=== PATIENT | male | born 1965 | race Caucasian/White ===

== ENCOUNTER → 2018-08-20 | Outpatient (CLI) | payer OTHER ==
[~2018-08-20] MED LIST: IBUP-1022 PO
--- NOTE | 2018-08-22 00:01 | ECGEPIP ---
[facility] Test Date: 2018-08-20 Pat Name: ABBY MASTERSON Department: Room: - Gender: Male [employer] Regional Consultant: RF : [id number] Requested By: Jamaal Carroll Order Number: [id number] Reading MD: Price Barcenas Measurements Intervals [place] Rate: 75 P: 57 MA: 162 QRS: 60 QRSD: 92 T: 54 QT: 364 QTc: 407 Interpretive Statements SINUS RHYTHM No prior tracing in the system Electronically Signed on 08-22-2018 0:00:33 EDT by Price Barcenas
== END ==
LOC: M EKG 10:27
PROVIDERS: ATTEND Internal Medicine
DX: Z01.818 Encounter for other preprocedural examination (principal)

== ENCOUNTER 2018-08-26 08:29 | Day surgery (SDC) | payer OTHER ==
[~2018-08-26] VITALS: Ht 172.7 cm; Wt 103.4 kg
[~2018-08-26 08:29] MED LIST changes: +EPINEPHrine INJ 1 MG/ML 1ML AMP As Ordered ONE; +LIDOCAINE 1% MDV 20ML VIAL As Ordered ONE; +LIDOCAINE 2% INJ 100 MG/5 ML SDV (FOR ANES.) As Ordered ONE; +LR 1,000 ML IV ONE; +MIDAZOLAM INJ 2 MG/2 ML VIAL (J2250) As Ordered ONE; +ONDANSETRON 4MG/2ML VIAL (J2405) As Ordered ONE; +PROPOFOL 200 MG/20 ML VIAL As Ordered ONE; +ROCURONIUM BROMIDE 50 MG/5 ML VIAL As Ordered ONE; +dexameTHASONE 4 MG/ML 1ML VIAL (J1100) As Ordered ONE; +fentaNYL 100 MCG/2 ML INJECTION (J3010) As Ordered ONE
[2018-08-26] MEDS ORDERED: EPINEPHrine INJ 1 MG/ML 1ML AMP ONE (08:30)
[2018-08-26] MEDS ORDERED: dexameTHASONE 10 MG/1 ML VIAL PRES.FREE (J1100) ONE (08:30)
[2018-08-26] MEDS ORDERED: ROPIvacaine 0.5% 30 ML INJECTION (J2795 PER 1MG) ONE (08:30)
[2018-08-26] MEDS ORDERED: MIDAZOLAM INJ 2 MG/2 ML VIAL (J2250) As Ordered ONE (09:46)
[2018-08-26] MEDS ORDERED: fentaNYL 100 MCG/2 ML INJECTION (J3010) As Ordered ONE ×3 (09:46→12:59)
[2018-08-26] MEDS ORDERED: EPINEPHrine INJ 1 MG/ML 1ML AMP As Ordered ONE (09:55)
[2018-08-26] MEDS ORDERED: ceFAZolin 2 GM/D5W 50 ML IV BAG (J0690 PER 500MG) As Ordered ONE (10:21)
[2018-08-26] MEDS ORDERED: fentaNYL 100 MCG/2 ML INJECTION (J3010) IV ONE (10:30)
[2018-08-26] MEDS ORDERED: MIDAZOLAM INJ 2 MG/2 ML VIAL (J2250) IV ONE (10:30)
[2018-08-26] MEDS ORDERED: NEOSTIGMINE 10 MG/10 ML VIAL (J2710) As Ordered ONE (10:57)
[2018-08-26] MEDS ORDERED: GLYCOPYRROLATE INJ 0.2 MG/ML 2 ML VIAL As Ordered ONE (10:57)
[2018-08-26] MEDS ORDERED: BUPIVACAINE HCL 0.25% 30 ML VIAL As Ordered ONE (11:11)
[2018-08-26] MEDS ORDERED: ONDANSETRON 4MG/2ML VIAL (J2405) As Ordered ONE (13:54)
[2018-08-26] MEDS ORDERED: METOCLOPRAMIDE INJ 10MG/2ML VIAL (J2765) As Ordered ONE (14:12)
[2018-08-26] MEDS ORDERED: LR 1,000 ML IV SCH (14:15)
[2018-08-26] MEDS ORDERED: ONDANSETRON 4MG/2ML VIAL (J2405) IV PRN (14:15)
[2018-08-26] MEDS: fentaNYL 100 MCG/2 ML INJECTION (J3010) IV PRN ×4 (14:17→14:38)
[2018-08-26] MEDS ORDERED: METOCLOPRAMIDE INJ 10MG/2ML VIAL (J2765) IV PRN (14:30)
[2018-08-26] MEDS: oxyCODONE 5MG TAB PO PRN ×2 (14:32→16:11)
[2018-08-26] MEDS ORDERED: KETOROLAC 30 MG/ML VIAL (J1885) As Ordered ONE (14:46)
--- NOTE | 2018-08-26 14:46 | RO ---
DATE OF PROCEDURE: 08/26/2018 PREOPERATIVE DIAGNOSES: 1. Right shoulder partial thickness rotator cuff tear. 2. Right shoulder SLAP tear. 3. Right shoulder acromioclavicular joint arthritis. 4. Right shoulder impingement. POSTOPERATIVE DIAGNOSES: 1. Right shoulder high-grade partial thickness rotator cuff tear. 2. Right shoulder type IV SLAP tear. 3. Right shoulder acromioclavicular joint arthritis. 4. Right shoulder impingement. PROCEDURE: 1. Right shoulder arthroscopic rotator cuff repair, including subscapularis. 2. Right shoulder open subpectoral biceps tenodesis. 3. Right shoulder arthroscopic distal clavicle excision. 4. Right shoulder subacromial decompression, including acromioplasty. SURGEON: Dr. Ash Marin [employer] TRUCK DRIVER: AMITA Purdy ANESTHESIA: General: Preoperative nerve block. IV FLUIDS: Lactated Ringer's. ESTIMATED BLOOD LOSS: 5 mL. IMPLANTS: Arthrex proximal biceps button times one. Arthrex 4.75 mm Peak SwiveLock anchor times five. CLOSURE: Monocryl and nylon. DESCRIPTION OF PROCEDURE: The patient was identified in preoperative holding area. The right shoulder was marked by myself. He had interscalene nerve block by anesthesia. He was brought the operating room and placed supine on a well-padded operating room table. General anesthesia was induced. He received appropriate IV antibiotics within 1 hour of incision. An exam under anesthesia revealed 170 degrees of forward flexion and 70 degrees of external rotation of the arm at his side. No increased anterior-posterior translation. The right arm was then placed into the Arthrex star sleeve lateral decubitus traction mendoza. He was placed into the left side down lateral decubitus position with an axillary roll and all bony prominences well padded. Bilateral Venodyne boots for deep vein thrombosis (DVT) prophylaxis. The right arm was position with 10 pounds of traction. He was secured to the operating room table. The right shoulder was then prepped and draped in normal sterile fashion with Chloraprep. Prior to incision, time-out was performed per hospital protocol. Pino Cooper was present for the entire procedure and participated in all essential portions of the procedure. This included patient positioning and draping, holding the arthroscope, performing the biceps tenotomy, assisting with whip stitching of the biceps tendon, retrieving sutures, placing SwiveLock anchors and wound closure. The right shoulder was insufflated was lactated Ringer's. A standard posterior viewing portal made with an 11-blade. 30 degrees arthroscope introduced into the joint atraumatically. Diagnostic arthroscopy carried out revealing minimal chondromalacia of the glenohumeral joint. There was degenerative fraying of the anterior labrum. No displaced labral tear. There was extensive tearing of the superior labrum extending into the long head of biceps tendon, appeared to be a type IV SLAP tear. There was partial tearing of the upper border of the subscapularis. There was some partial articular sided tearing of the anterior supraspinatus. There was some fraying of the infraspinatus. An anterior working portal was established in the rotator interval and on probing the superior labrum, the anchor was highly unstable. A tenotomy was performed using the meniscal punch. The tendon was released right off the superior labrum and the shaver was used to remove degenerative torn superior and anterior labral tissue. A rotator interval release was performed with the radiofrequency cautery and a debridement of the upper border of the subscapularis tendon. This did appeared to partially lift off doing the posterior lever push maneuver. I then proceeded with an open biceps tenodesis. 15 blade used to make an incision just lateral to the axilla and dissection down to the biceps fascia. That was opened carefully with Metzenbaum scissors. The long head of the biceps tendon was easily identified and dissected out the right angle clamp. The tendon was retrieved uneventfully and then the proximal biceps kit opened. A running locking whip stitch was placed with the fiber loop. Excess tendon trimmed and sent to pathology. Sutures loaded through the biceps button per protocol. Drill hole was made with the spade tip drill bit within the bicipital groove just proximal to lower edge of the pectoral major tendon. Irrigation used to remove bony debris. Sutures were passed through the button per routine and the button was passed through the drill hole on its hot head machine operator. The sutures were toggled, which flipped the button and docked the tendon nicely along the bicipital groove. Curve free needle was used to pass one limb of suture back through the tendon and locked the construct in place. Knots were tied by hand. This nicely restored the resting tension. Incision was then extensively irrigated, closed in layered fashion with 2-0 Vicryl and a running Monocryl and Steri-Strips at the end of the case. I also injected 10 mL of 0.25 percent Marcaine without epinephrine as the preoperative nerve block seemed to miss that area. Arthroscope was then placed into the subacromial space and a very high-grade bursal sided rotator cuff tear was encountered. At this point, I determined he needed a rotator cuff repair and therefore also elected to proceed with the subscapularis repair. Arthroscope placed back into the joint and accessory superolateral portal was created and the shaver was used to remove soft tissue from the lesser tuberosity deep to the subscapularis. Scorpion was used to pass fiber tape through the upper border of the subscapularis and then that was loaded through a 4.75 mm Peak SwiveLock anchor. Punch was used to create a socket in the lesser tuberosity. The anchor was docked, malleted and then inserted by hand with excellent fixation. This nicely compressed the subscapularis against the lesser tuberosity. Arthroscope placed back into the subacromial space. A lateral working portal was established a bursectomy performed with shaver and cautery. A moderate subacromial spur was encountered and a formal acromioplasty performed with the bur. Attention was then turned to the AC joint before the patient became too swollen. Cautery was used to clear soft tissue out from the AC joint. There was bone on bone contact. I was unable to pass instruments from anterior to posterior. A bur was then used to remove approximately 5-6 mm of the distal clavicle and 1 mm from the acromion. The arthroscope was intermittently placed into the anterior portal to get a direct view and ensure that no superior and posterior bone remained. Once a satisfactory distal clavicle excision was performed, attention was turned to the supraspinatus tear. This was almost a full-thickness tear. A few articular sided fibers remaining. The tear was completed with cautery and a ring curette used to clear soft tissue off the tuberosity. Spinal needle used to localize the medial row. I percutaneously placed two 4.75 mm Peak SwiveLock anchors preloaded with tape, one anterior and one further posterior just off the articular surface. The both had great fixation. The tape sutures were then passed individually in a horizontal mattress fashion so four passes of tape. An impending dog ear posteriorly was anticipated so a separate strand a fiber tape was passed of the scorpion through the very far posterior portion of the tear. One suture from each medial anchor was then brought to the anterolateral anchor and the cannula used to determine the appropriate position for that lateral row. The awl was used to create a socket in the greater tuberosity. The anchor was docked, sutures tensioned and then malleted and advanced by hand with excellent fixation. Excess suture cut with arthroscopic lacing string cutter. These steps were repeated for the remaining sutures into a posterior lateral anchor. Same steps repeated. This restored the box and X configuration. The entire supraspinatus was nicely compressed on the greater tuberosity without being under any significant tension. There were no dog ears. The shoulder was gently internally and externally rotated. There was no lift off or buckling. Shoulder was irrigated and drained. Portals closed with nylon suture. Steri-Strips placed over the biceps incision. Bulky sterile dressing was applied and then he was placed into the Arc 2.0 sling. He was extubated, transferred to postanesthesia care unit (PACU) in stable condition. COMPLICATIONS: None.
[2018-08-26] MEDS ORDERED: ACETAMINOPHEN *IV* 1,000 MG IV PRN ×2 (15:00)
[2018-08-26] MEDS ORDERED: KETOROLAC 30 MG/ML VIAL (J1885) IV PRN (15:00)
[2018-08-26] MEDS ORDERED: oxyCODONE 5MG TAB As Ordered ONE (16:11)
[2018-08-26 18:00] VITALS: BP 162/93
== END 2018-08-26 18:05 | disposition home or self-care (01) ==
LOC: M SDC 08:29
PROVIDERS: ATTEND Orthopaedic Surgery
DX: M75.111 Incomplete rotator cuff tear or rupture of right shoulder, not specified as traumatic (principal); S43.431A Superior glenoid labrum lesion of right shoulder, initial encounter; M19.011 Primary osteoarthritis, right shoulder; M75.41 Impingement syndrome of right shoulder; F17.210 Nicotine dependence, cigarettes, uncomplicated; Y93.9 Activity, unspecified; Y92.9 Unspecified place or not applicable
CPT/HCPCS: 23430; 29824; 29826; 29827; 64415; 88304; C1713; J0131; J0690; J1100; J1885; J2250; J2405; J2710; J2765; J2795; J3010

== ENCOUNTER → 2022-07-19 | Outpatient (CLI) | payer OTHER ==
[~2022-07-19] MED LIST changes: +CELE1CAP9 PO; -EPINEPHrine INJ 1 MG/ML 1ML AMP As Ordered ONE; +ERGO500029; -LIDOCAINE 1% MDV 20ML VIAL As Ordered ONE; -LIDOCAINE 2% INJ 100 MG/5 ML SDV (FOR ANES.) As Ordered ONE; -LR 1,000 ML IV ONE; -MIDAZOLAM INJ 2 MG/2 ML VIAL (J2250) As Ordered ONE; -ONDANSETRON 4MG/2ML VIAL (J2405) As Ordered ONE; -PROPOFOL 200 MG/20 ML VIAL As Ordered ONE; -ROCURONIUM BROMIDE 50 MG/5 ML VIAL As Ordered ONE; +SIMV10TA21 PO; -dexameTHASONE 4 MG/ML 1ML VIAL (J1100) As Ordered ONE; -fentaNYL 100 MCG/2 ML INJECTION (J3010) As Ordered ONE
== END ==
LOC: M RAD 06:37
PROVIDERS: ATTEND Internal Medicine Medical Oncology
DX: D45 Polycythemia vera (principal)

== ENCOUNTER 2022-11-28 10:22 | Emergency (ER) | payer BC, OTHER ==
[~2022-11-28] VITALS: Ht 172.7 cm; Wt 107.8 kg
[~2022-11-28 10:22] MED LIST changes: +CELE0.09 PO; -CELE1CAP9 PO; +OMEG10002 PO
[2022-11-28 10:59] LABS: BASO # 0.1 10^3/uL (0.0-0.2); BASO % 0.7 % (0.0-1.0); EOS # 0.4 10^3/uL (0.0-0.5); HEMATOCRIT 45.9 % (42.0-52.0); HEMOGLOBIN 15.6 g/dl (13.5-17.5); LYMPH # 3.2 10^3/uL (1.5-5.0); LYMPH % 25.1 % (24.0-44.0); MEAN CORPUSCULAR HEMOGLOBIN 32.2 pg (27.0-33.0); MEAN CORPUSCULAR VOLUME 94.6 fl (80.0-96.0); MONO # 0.9 10^3/uL (0.0-0.8); NEUTROPHILS % 63.6 % (36.0-66.0); PLATELET COUNT, AUTOMATED 260 10^3/uL (150-450); RED BLOOD COUNT 4.85 10^6/uL (4.30-6.10); WHITE BLOOD COUNT 12.5 10^3/uL (4.0-10.0)
[2022-11-28 11:19] LABS: INR 0.98; PROTHROMBIN TIME 12.7 SECONDS (12.5-14.5)
[2022-11-28 11:20] LABS: CK-MB VALUE MASS < 1.0 NG/ML (<3.6); LIPASE 40 U/L (12-53)
[2022-11-28 11:23] LABS: ALBUMIN 3.6 G/DL (3.2-5.2); ALKALINE PHOSPHATASE 85 U/L (46-116); ALT/SGPT 29 U/L (7.0-40); AST/SGOT 14 U/L (<34); BILIRUBIN,DIRECT 0.1 MG/DL (<0.4); BILIRUBIN,TOTAL 0.5 MG/DL (0.3-1.2); BLOOD UREA NITROGEN 14 MG/DL (9-23); CALCIUM LEVEL 9.3 MG/DL (8.5-10.1); CARBON DIOXIDE LEVEL 28 MMOL/L (20-31); CHLORIDE LEVEL 110 MMOL/L (98-107); CPK CREATINE PHOSPHOKINASE 59 U/L (46-171); CREATININE FOR GFR 0.72 MG/DL (0.70-1.30); GLOMERULAR FILTRATION RATE > 60.0 (>56); GLUCOSE, FASTING 98 MG/DL (60-100); MB/CK RELATIVE INDEX 1.69 (< OR =4); POTASSIUM SERUM 4.2 MMOL/L (3.5-5.1); SODIUM LEVEL 141 MMOL/L (136-145); TOTAL PROTEIN 6.4 G/DL (5.7-8.2)
[2022-11-28] MEDS ORDERED: ACETAMINOPHEN 500 MG TAB PO ONE (11:35)
[2022-11-28] MEDS ORDERED: ISOVUE-370 76% 100ML VIAL As Ordered ONE (12:53)
[2022-11-28] MEDS ORDERED: [UNRECOGNIZED DRUG - REMARK] (14:39)
[2022-11-28 14:48] VITALS: BP 128/69; TEMP 96.8; O2SAT 98
== END 2022-11-28 14:51 | disposition home or self-care (01) ==
LOC: EDBD 10:22 → M ED 11:27
DX: R07.9 Chest pain, unspecified (principal); X50.0XXA Overexertion from strenuous movement or load, initial encounter; E78.5 Hyperlipidemia, unspecified; F17.200 Nicotine dependence, unspecified, uncomplicated; R93.2 Abnormal findings on diagnostic imaging of liver and biliary tract; Z79.899 Other long term (current) drug therapy
CPT/HCPCS: 71045; 71275; 80048; 80076; 82550; 82553; 83690; 84484; 85025; 85610; 93005; 93041; 94760; 99285; Q9967

== ENCOUNTER → 2022-12-25 | Outpatient (CLI) | payer OTHER ==
[~2022-12-25] MED LIST changes: +[UNRECOGNIZED DRUG - REMARK]
== END ==
LOC: M RAD 07:39
PROVIDERS: ATTEND Nurse Practitioner
DX: K76.0 Fatty (change of) liver, not elsewhere classified (principal); Q44.6 Cystic disease of liver

== ENCOUNTER → 2023-05-13 | Outpatient (CLI) | payer OTHER | LOC: M PLAIMG 14:10 | PROVIDERS: ATTEND Internal Medicine Cardiovascular Disease | DX: R94.31 Abnormal electrocardiogram [ECG] [EKG] (principal) ==

== ENCOUNTER → 2023-06-13 | Outpatient (CLI) | payer OTHER ==
[~2023-06-13] MED LIST changes: +LIDOCAINE 1% MDV 20ML VIAL As Ordered ONE
[2023-06-13 11:30] VITALS: TEMP 98
[2023-06-13 11:36] LABS: BASO # 0.1 10^3/uL (0.0-0.2); BASO % 1.2 % (0.0-1.0); EOS # 0.3 10^3/uL (0.0-0.5); EOS % 2.2 % (0.0-3.0); HEMATOCRIT 44.8 % (42.0-52.0); HEMOGLOBIN 14.6 g/dl (13.5-17.5); LYMPH # 3.3 10^3/uL (1.5-5.0); LYMPH % 29.2 % (24.0-44.0); MEAN CORPUSCULAR HGB CONC 32.6 g/dl (32.0-36.5); MEAN CORPUSCULAR VOLUME 89.1 fl (80.0-96.0); MONO # 0.9 10^3/uL (0.0-0.8); MONO % 7.5 % (2.0-8.0); NEUTROPHILS # 6.7 10^3/uL (1.5-8.5); NEUTROPHILS % 59.2 % (36.0-66.0); PLATELET COUNT, AUTOMATED 261 10^3/uL (150-450); RED BLOOD COUNT 5.03 10^6/uL (4.30-6.10); WHITE BLOOD COUNT 11.3 10^3/uL (4.0-10.0)
[2023-06-13 11:53] LABS: INR 0.95; PROTHROMBIN TIME 12.4 SECONDS (12.5-14.5)
[2023-06-13 12:35] VITALS: BP 161/84; O2SAT 98
== END ==
LOC: M IRPRO 11:02
PROVIDERS: ATTEND Internal Medicine Medical Oncology
DX: D45 Polycythemia vera (principal)

== ENCOUNTER → 2023-06-28 | Outpatient (CLI) | payer OTHER ==
[~2023-06-28] MED LIST changes: -ERGO500029; +ERGO500029 PO; -LIDOCAINE 1% MDV 20ML VIAL As Ordered ONE
== END ==
LOC: M RAD 15:27
PROVIDERS: ATTEND Physician Assistant Medical
DX: Z12.2 Encounter for screening for malignant neoplasm of respiratory organs (principal); Z87.891 Personal history of nicotine dependence; J47.9 Bronchiectasis, uncomplicated; K76.89 Other specified diseases of liver

== ENCOUNTER → 2023-07-16 | Outpatient (CLI) | payer OTHER ==
[~2023-07-16] MED LIST changes: +GASTROGRAFIN SOLUTION 30ML As Ordered ONE; +ISOVUE-370 76% 100ML VIAL As Ordered ONE
== END ==
LOC: M RAD 14:40
PROVIDERS: ATTEND Internal Medicine Medical Oncology
DX: D75.1 Secondary polycythemia (principal); K76.0 Fatty (change of) liver, not elsewhere classified; K76.89 Other specified diseases of liver; K57.90 Diverticulosis of intestine, part unspecified, without perforation or abscess without bleeding
CPT/HCPCS: 74177; Q9963; Q9967

== ENCOUNTER → 2024-07-03 | Outpatient (CLI) | payer OTHER ==
[~2024-07-03] MED LIST changes: -GASTROGRAFIN SOLUTION 30ML As Ordered ONE; -ISOVUE-370 76% 100ML VIAL As Ordered ONE
== END ==
LOC: M SOG 07:28
PROVIDERS: ATTEND Neuromusculoskeletal Medicine, Sports Medicine
DX: M25.551 Pain in right hip (principal); M16.11 Unilateral primary osteoarthritis, right hip

== ENCOUNTER → 2024-09-24 | Outpatient (CLI) | payer OTHER | LOC: M PLARAD 14:50 | PROVIDERS: ATTEND Neuromusculoskeletal Medicine, Sports Medicine | DX: M87.80 Other osteonecrosis, unspecified bone (principal); M16.12 Unilateral primary osteoarthritis, left hip; M76.02 Gluteal tendinitis, left hip ==

== ENCOUNTER → 2024-10-02 | Outpatient (CLI) | payer OTHER | LOC: M RAD 08:39 | PROVIDERS: ATTEND Physician Assistant Medical | DX: K76.89 Other specified diseases of liver (principal); F17.210 Nicotine dependence, cigarettes, uncomplicated ==

== ENCOUNTER → 2025-01-14 | Outpatient (REF) | payer OTHER ==
[~2025-01-14] MED LIST changes: -IBUP-1022 PO; +IBUP600T42 PO; +VERA40TA
== END ==
LOC: M LAB REF 17:24
PROVIDERS: ATTEND Neuromusculoskeletal Medicine, Sports Medicine
DX: M16.0 Bilateral primary osteoarthritis of hip (principal)